=== PATIENT | male | born 1950 | race Caucasian/White ===

== ENCOUNTER 2019-10-27 06:02 | Inpatient (IN) ==
[~2019-10-27 06:02] MED LIST: Vancomycin 1,000 MG, Sodium Chloride IRRigation 1,000 ML IR ONE
[2019-10-27] MEDS ORDERED: Vancomycin 1,250 MG/262.5 ML IV.SOLN IVPB ONE ×2 (06:28→20:00)
[2019-10-27] MEDS ORDERED: CeFAZolin Syr 2,000MG/20 ML 2,000 MG/20 ML SYRINGE IVPB ONE (06:28)
[2019-10-27] MEDS ORDERED: Ringers Solution, Lactated 1,000 ML IVC SCH ×2 (06:30→06:45)
[2019-10-27] MEDS ORDERED: Ondansetron 4 MG/2 ML VIAL IVP ONE (06:42)
[2019-10-27] MEDS ORDERED: *HR* OxyCODONE Immed Rel 5 MG TABLET PO PRN ×3 (06:42→12:26)
[2019-10-27] MEDS ORDERED: *HR* HYDROmorphone PF 0.5 MG/0.5 ML SYRINGE IVP PRN (06:42)
[2019-10-27] MEDS ORDERED: *HR* FentaNYL (PF) 100 MCG/2 ML VIAL ONE (07:01)
[2019-10-27] MEDS ORDERED: *HR* Rocuronium Bromide 50 MG/5 ML VIAL ONE (07:01)
[2019-10-27] MEDS ORDERED: Lidocaine -MPF 2% 2 ML VIAL ONE ×2 (07:01→08:05)
[2019-10-27] MEDS ORDERED: *HR* Phenylephrine 10 MG/ML VIAL ONE (07:01)
[2019-10-27] MEDS ORDERED: *HR* Remifentanil 2 MG VIAL IVP ONE (07:01)
[2019-10-27] MEDS ORDERED: *HR* Succinylcholine 200 MG/10 ML VIAL IVP ONE (07:01)
[2019-10-27] MEDS ORDERED: *HR* Heparin 5,000 UNIT/ML VIAL ONE (07:02)
[2019-10-27] MEDS ORDERED: *HR* Propofol 200 MG/20 ML VIAL IVP ONE (07:02)
[2019-10-27] MEDS ORDERED: *HR* Midazolam HCl 2 MG/2 ML VIAL ONE (07:02)
[2019-10-27] MEDS ORDERED: Heparin 1,000 UNITS/500 mL 1,500 ML ONE (07:07)
[2019-10-27] MEDS ORDERED: Vancomycin 1,000 MG VIAL ONE (07:08)
[2019-10-27] MEDS ORDERED: Isovue-300 200 mL Infus..BTL ONE (07:08)
[2019-10-27] MEDS ORDERED: Heparin 1,000 UNITS/500 mL 500 ML ONE ×2 (07:10→10:09)
[2019-10-27] MEDS ORDERED: Lacri-Lube 3.5 GM TUBE ONE (07:24)
[2019-10-27] MEDS ORDERED: Lidocaine -MPF 4% 5 ML AMPUL ONE (08:00)
[2019-10-27] MEDS ORDERED: *HR* PHENYLEPHRINE 1,000 MCG/10 ML SYRINGE IVP ONE (08:26)
[2019-10-27 08:57] LABS: Estimated Average Glucose 171 mg/dl; Hemoglobin A1C 7.6 %
[2019-10-27] MEDS ORDERED: EPHEDrine 50 MG/ML VIAL ONE (09:17)
[2019-10-27] MEDS ORDERED: Ondansetron 4 MG/2 ML VIAL ONE (10:33)
[2019-10-27] MEDS ORDERED: Neostigmine Methylsulfate 3 MG/3 ML SYRINGE ONE (10:35)
[2019-10-27] MEDS: Insulin LISPRO 300 UNITS/3 ML VIAL SQ SCH ×2 (12:25→17:58)
[2019-10-27] MEDS ORDERED: 0.9 % Sodium Chloride 1,000 ML IVC SCH (12:26)
[2019-10-27] MEDS ORDERED: *HR* Dextrose 50 % in Water (Vial) 50 ML VIAL IVP PRN (12:26)
[2019-10-27] MEDS ORDERED: Acetaminophen 325 MG TABLET PO PRN ×2 (12:26)
[2019-10-27] MEDS ORDERED: Dextrose Gel 15 GM/37.5 ML TUBE PO PRN ×2 (12:26)
[2019-10-27] MEDS ORDERED: D5% in Water 1,000 ML IVC PRN (12:26)
[2019-10-27] MEDS ORDERED: *HR* Labetalol 20 MG/4 ML SYRINGE IVP PRN (12:26)
[2019-10-27] MEDS ORDERED: Naloxone 0.4 MG/ML INJ IVP PRN (12:26)
[2019-10-27] MEDS ORDERED: *HR* HYDROcodone/Acet 5/325 mg TABLET PO PRN ×2 (12:26)
[2019-10-27] MEDS ORDERED: Loratadine 10 MG TABLET PO PRN (12:26)
[2019-10-27] MEDS ORDERED: Ondansetron 4 MG/2 ML VIAL IVP PRN (12:26)
[2019-10-27] MEDS: lisinopriL 20 MG TABLET PO SCH (13:37)
[2019-10-27] MEDS: *HR* Metoprolol 5 MG/5 ML VIAL IVP SCH ×2 (13:39→16:50)
[2019-10-27] MEDS: Aspirin Enteric Coated 81 MG Tablet PO SCH (15:14)
[2019-10-27] MEDS: CeFAZolin 2 GM/120 ML BAG IVPB SCH (15:16)
[2019-10-27] MEDS ORDERED: Insulin LISPRO 300 UNITS/3 ML VIAL SQ SCH (21:00)
[2019-10-28] MEDS: *HR* Metoprolol 5 MG/5 ML VIAL IVP SCH ×2 (00:07→04:41)
[2019-10-28] MEDS: CeFAZolin 2 GM/120 ML BAG IVPB SCH (00:10)
[2019-10-28 04:29] LABS: Basophils % 0.5 %; Eosinophils # 0.1 K/mcL (0.0-0.6); Eosinophils % 0.9 %; Hematocrit 33.6 % (37.5-50.1); Immature Granulocytes % 0.2 % (0-4); Immature Platelets 6.9 % (1.1-6.1); Lymphocytes # 0.7 K/mcL (0.6-4.6); Mean Corpuscular HGB Conc 32.7 g/dL (31.6-35.5); Mean Corpuscular Hemoglobin 30.2 pg (28.0-33.3); Mean Corpuscular Volume 92.3 fL (83.0-100.0); Mean Platelet Volume 11.3 fL (9.4-12.4); Monocytes # 0.6 K/mcL (0.0-1.3); Monocytes % 8.8 %; Platelet Count 102 K/mcL (140-400); Red Blood Count 3.64 M/mcL (4.19-5.50); Segmented Neutrophils % 78.6 %; White Blood Count 6.4 K/mcL (4.3-11.1)
[2019-10-28 04:33] LABS: BUN/Creatinine Ratio 14 (6-26); Blood Urea Nitrogen 12 mg/dL (8-23); Calcium 8.3 mg/dL (8.6-10.3); Carbon Dioxide 25 mEq/L (23-29); Chloride 105 mEq/L (98-107); Glucose 143 mg/dL (70-105); Osmolality,Calculated 288 (280-300); Sodium 138 mEq/L (136-145); eGFR For African Americans > 60 (> 60); eGFR For Non-African Americans > 60 (> 60)
[2019-10-28] MEDS ORDERED: *HR* Heparin 5,000 UNIT/ML VIAL SQ SCH ×2 (06:00)
[2019-10-28 07:11] VITALS: BP 137/95
[2019-10-28] MEDS: lisinopriL 20 MG TABLET PO SCH (08:01)
[2019-10-28] MEDS: Aspirin Enteric Coated 81 MG Tablet PO SCH (08:01)
[2019-10-28] MEDS: Insulin LISPRO 300 UNITS/3 ML VIAL SQ SCH (08:01)
== END 2019-10-28 10:12 | disposition home or self-care (01) | DRG 269 ==
LOC: SAMDAY 06:02 → 2NNU 12:20
PROVIDERS: ADMIT Surgery; ATTEND Surgery